=== PATIENT | male | born 1995 | race Caucasian/White ===

== ENCOUNTER 2019-08-17 08:24 | Emergency (ER) | payer SELFPAY ==
[2019-08-17] MEDS ORDERED: IBUPROFEN 200 MG TAB PO ONE (09:32)
[2019-08-17] MEDS ORDERED: IBUPROFEN 400 MG TAB ONE (09:34)
[2019-08-17 10:41] VITALS: TEMP 98
[2019-08-17 10:44] VITALS: BP 109/64; O2SAT 96
--- NOTE | 2019-08-17 11:28 | ER ---
Nurse's Notes [facility] Name: Aman Vicente Age: 23 yrs Sex: Male : 1995 Arrival Date: 08/17/2019 Time: 08:25 Bed 14 Private MD: Diagnosis: Influenza due to certain identified influenza viruses Presentation: 08/17 08:44 Presenting complaint:. Presenting complaint: Patient states: "I think i have the flu or tw2 something, i have had body aches for 3 days and nasal congestion with a cough, no sore throat, no N/V, no sob". Transition of care: patient was not received from another setting of care. Onset of symptoms was August 17, 2019. Risk Assessment: Do you want to hurt yourself or someone else? Patient reports no desire to harm self or others. Initial Sepsis Screen: Does the patient meet any 2 criteria? No. Patient's initial sepsis screen is negative. Does the patient have a suspected source of infection? No. Patient's initial sepsis screen is negative. Care prior to arrival: None. 08:44 Method Of Arrival: Ambulatory tw2 08:44 Acuity: MARIA E 4 tw2 Triage Assessment: 08:45 General: Appears in no apparent distress. slender, Behavior is calm, cooperative, tw2 appropriate for age. Pain: Denies pain. Historical: - Allergies: 08:46 No Known Allergies; tw2 - Home Meds: 08:46 None [Active]; tw2 - PMHx: 08:46 None; tw2 - PSHx: 08:46 None; tw2 - Immunization history:: Adult Immunizations. - Social history:: Smoking status: Patient uses tobacco products, smokes one pack cigarettes per day. - Ebola Screening: : Patient denies travel to an Ebola-affected area in the 21 days before illness onset. Screenin:47 Abuse screen: Denies threats or abuse. Nutritional screening: No deficits noted. tw2 Tuberculosis screening: No symptoms or risk factors identified. Fall Risk None identified. Assessment: 08:47 General: Appears in no apparent distress. slender, Behavior is calm, cooperative, tw2 appropriate for age. Neuro: Level of Consciousness is awake, alert, obeys commands, Oriented to person, place, time, situation. Cardiovascular: Patient's skin is warm and dry. Respiratory: Reports cough that is non-productive, Airway is patent Respiratory effort is even, unlabored, Respiratory pattern is regular, symmetrical. GI: No signs and/or symptoms were reported involving the gastrointestinal system. : No signs and/or symptoms were reported regarding the genitourinary system. EENT: Reports nasal congestion nasal discharge. Derm: No signs and/or symptoms reported regarding the dermatologic system. Musculoskeletal: Range of motion: intact in all extremities. 09:38 Reassessment: Patient appears in no apparent distress at this time. No changes from tw2 previously documented assessment. Patient and/or family updated on plan of care and expected duration. Pain level reassessed. Patient is alert, oriented x 3, equal unlabored respirations, skin warm/dry/pink. 10:12 Reassessment: Patient appears in no apparent distress at this time. Patient is alert, ca1 oriented x 3, equal unlabored respirations, skin warm/dry/pink. Vital Signs: 08:45 BP 124 / 75; Pulse 97; Resp 18; Temp 98.0(O); Pulse Ox 95% on R/A; Weight 70.31 kg (R); tw2 Height 5 ft. 10 in. (177.80 cm); Pain 0/10; 09:39 BP 113 / 73; Pulse 81; Resp 17; Pulse Ox 95% on R/A; tw2 10:12 BP 109 / 64; Pulse 76; Resp 17 S; Pulse Ox 96% on R/A; ca1 08:45 Body Mass Index 22.24 (70.31 kg, 177.80 cm) tw2 ED Course: 08:25 Patient arrived in ED. as 08:34 Bed in low position. Call light in reach. tw2 08:38 Bhupendra Cameron MD is Attending Physician. [facility] 08:38 Guru Burgess PA is PHCP. [facility] 08:45 Triage completed. tw2 08:45 Arm band placed on. tw2 09:18 Vivi Mcdaniel RN is Primary Nurse. tw2 09:34 Strep Sent. tw2 09:34 Flu Sent. tw2 09:40 Strep Sent. tw2 09:40 Flu Sent. tw2 10:03 Report given to JOSEFA Stoll. tw2 10:33 No provider procedures requiring assistance completed. Patient did not have IV access ca1 during this emergency room visit. Administered Medications: 09:34 Drug: Motrin 600 mg Route: PO; tw2 09:51 Follow up: Response: No adverse reaction tw2 Outcome: 10:16 Discharge ordered by . dameon 10:33 Discharged to home ambulatory. ca1 10:33 Condition: stable 10:33 Discharge instructions given to patient, Instructed on discharge instructions, follow up and referral plans. Demonstrated understanding of instructions, follow-up care. 10:34 Patient left the ED. ca1 Signatures: Bhupendra Cameron MD MD cha Mickail, Joel, PA PA jmm Martinez, Amelia as Wise, Tara, JOSEFA RN tw2 Dodie Lo RN RN ca1 Corrections: (The following items were deleted from the chart) 08:49 08:44 Presenting complaint: Patient states: i have had body aches for 3 days and nasal tw2 congestion with a cough, no sore throat, no N/V, no sob tw2
--- NOTE | 2019-08-17 11:29 | EDPHYS ---
Physician Documentation [facility] Name: Aman Vicente Age: 23 yrs Sex: Male : 1995 Arrival Date: 08/17/2019 Time: 08:25 Bed 14 Private MD: ED Physician Bhupendra Cameron HPI: 08/17 08:38 This 23 yrs old Male presents to ER via Ambulatory with complaints of Cold jmm Symptoms. 08:38 The patient or guardian reports cough. Onset: The symptoms/episode began/occurred jmm gradually, 3 day(s) ago. Modifying factors: The symptoms are alleviated by nothing. the symptoms are aggravated by nothing. Associated signs and symptoms: Pertinent negatives: sore throat. This is a 23 year old male with no chronic medical conditions that presents to the ED with complaints of cough, congestion, body aches, fever beginning 3 days ago. Patient recently flew in from [place]. . Historical: - Allergies: 08:46 No Known Allergies; tw2 - Home Meds: 08:46 None [Active]; tw2 - PMHx: 08:46 None; tw2 - PSHx: 08:46 None; tw2 - Immunization history:: Adult Immunizations. - Social history:: Smoking status: Patient uses tobacco products, smokes one pack cigarettes per day. - Ebola Screening: : Patient denies travel to an Ebola-affected area in the 21 days before illness onset. ROS: 08:38 Cardiovascular: Negative for chest pain, palpitations, and edema. jmm 08:38 Constitutional: Positive for fever. 08:38 ENT: Positive for 08:38 Respiratory: Positive for cough. 08:38 Respiratory: Positive for 08:38 All other systems are negative. Exam: 08:38 Constitutional: This is a well developed, well nourished patient who is awake, alert, jmm and in no acute distress. Head/Face: atraumatic. Eyes: EOMI, no conjunctival erythema appreciated ENT: Moist Mucus Membranes Neck: Trachea midline, Supple Chest/axilla: Normal chest wall appearance and motion. Cardiovascular: Regular rate and rhythm. No edema appreciated 08:38 Back: Normal ROM Skin: General appearance color normal MS/ Extremity: Moves all extremities, no obvious deformities appreciated, no edema noted to the lower extremities Neuro: Awake and alert, normal gait 08:38 Respiratory: the patient does not display signs of respiratory distress, Respirations: normal, Breath sounds: are clear throughout. 08:38 Abdomen/GI: Inspection: abdomen appears normal, Bowel sounds: normal, Palpation: abdomen is soft and non-tender, in all quadrants. Vital Signs: 08:45 BP 124 / 75; Pulse 97; Resp 18; Temp 98.0(O); Pulse Ox 95% on R/A; Weight 70.31 kg (R); tw2 Height 5 ft. 10 in. (177.80 cm); Pain 0/10; 09:39 BP 113 / 73; Pulse 81; Resp 17; Pulse Ox 95% on R/A; tw2 10:12 BP 109 / 64; Pulse 76; Resp 17 S; Pulse Ox 96% on R/A; ca1 08:45 Body Mass Index 22.24 (70.31 kg, 177.80 cm) tw2 MDM: 08:38 Patient medically screened. mayank 10:14 Data reviewed: vital signs, nurses notes. Counseling: I had a detailed discussion with [facility] the patient and/or guardian regarding: the historical points, exam findings, and any diagnostic results supporting the discharge/admit diagnosis, lab results, the need for outpatient follow up, to return to the emergency department if symptoms worsen or persist or if there are any questions or concerns that arise at home. 08/17 09:17 Order name: Flu; Complete Time: 09:54 [facility] 08/17 09:17 Order name: Strep; Complete Time: 09:54 [facility] 08/17 09:52 Order name: Throat Culture EDME Administered Medications: 09:34 Drug: Motrin 600 mg Route: PO; tw2 09:51 Follow up: Response: No adverse reaction tw2 Disposition: 10:46 Co-signature as Attending Physician, Bhupendra Cameron MD I agree with the assessment and mayank plan of care. Disposition: 08/17/19 10:16 Discharged to Home. Impression: Influenza due to certain identified influenza viruses. - Condition is Stable. - Discharge Instructions: Influenza, Adult. - Medication Reconciliation Form, Thank You Letter, Antibiotic Education, Prescription Opioid Use, Work release form form. - Follow up: Private Physician; When: 2 - 3 days; Reason: Recheck today's complaints, Continuance of care, Re-evaluation by your physician. Signatures: Dispatcher [employer] Bhupendra Mcfarland MD MD cha Mickail, Joel, PA PA jmm Wise, Tara, RN RN tw2 Dodie Lo, RN RN ca1 Corrections: (The following items were deleted from the chart) 10:34 10:16 08/17/2019 10:16 Discharged to Home. Impression: Influenza due to certain ca1 identified influenza viruses. Condition is Stable. Forms are Work release form, Medication Reconciliation Form, Thank You Letter, Antibiotic Education, Prescription Opioid Use. Follow up: Private Physician; When: 2 - 3 days; Reason: Recheck today's complaints, Continuance of care, Re-evaluation by your physician. dameon
== END 2019-08-17 10:34 | disposition home or self-care (01) ==
LOC: ER 08:24
DX: J10.1 Influenza due to other identified influenza virus with other respiratory manifestations (principal)
CPT/HCPCS: 87070; 87081; 87804; 99283